=== PATIENT | male | born 1980 | race Caucasian/White ===

== ENCOUNTER 2024-02-24 07:49 | Emergency (ER) | payer SELFPAY ==
[~2024-02-24] VITALS: Ht 182.9 cm; Wt 130.0 kg
[2024-02-24] MEDS ORDERED: OMEPRAZOLE20 MG PO (07:59)
[2024-02-24] MEDS ORDERED: MAGNESIUM HYDROXIDE/AL HYDROX 30 ML CUP PO ONE (08:00)
[2024-02-24] MEDS ORDERED: methylPREDNISolone SOD SUCC 125 MG/2 ML VIAL IV ONE (08:00)
[2024-02-24] MEDS ORDERED: PROTONIX40 MG PO (09:30)
[2024-02-24 09:45] VITALS: BP 156/98
== END 2024-02-24 09:46 | disposition home or self-care (01) ==
LOC: ED 07:49
DX: K22.2 Esophageal obstruction (principal); K21.9 Gastro-esophageal reflux disease without esophagitis; J38.5 Laryngeal spasm; Z88.0 Allergy status to penicillin; Z79.899 Other long term (current) drug therapy
CPT/HCPCS: 70360; 96374; 99284-25; A9270; J2919